=== PATIENT | female | born 1930 | race Two or more races ===

== ENCOUNTER 2018-11-06 14:49 | Emergency (ER) | payer OTHER ==
[~2018-11-06] VITALS: Ht 152.4 cm; Wt 69.4 kg
[~2018-11-06 14:49] MED LIST: CENTRUM ADULTS1 EACH; GILTUSS COUGH-118 ML PO; LOTREL 10-20 M1 EACH; VITAMIN D5000 UNIT; ZOCOR5 MG
== END 2018-11-06 16:13 | disposition home or self-care (01) ==
LOC: ER 14:49
DX: S80.02XA Contusion of left knee, initial encounter (principal); M25.562 Pain in left knee; W18.09XA Striking against other object with subsequent fall, initial encounter; Y93.89 Activity, other specified; Y92.89 Other specified places as the place of occurrence of the external cause; Y99.8 Other external cause status